=== PATIENT | female | born 1970 | race American Indian/Alaskan Native ===

== ENCOUNTER 2016-11-17 09:29 | Emergency (ER) | payer BC, MEDICARE ==
[2016-11-17 09:38] VITALS: RESP 18; TEMP 98.2; O2SAT 100; BMI 33.2
--- NOTE | 2016-11-17 09:45 | ED PDOC ---
Arrival/HPI - General Chief Complaint: Hip Pain Time Seen by Provider: 11/17/16 09:34 Historian: Patient - History of Present Illness Narrative History of Present Illness (Text): 11/17/16 09:44 46 y/o female, pmh including htn/hyperlipidemia/cva with lt. hemiparesis/ herniated disc on [id number] with neural foraminal narrowing, allergic to penicillin, c/o lower back pain x 5 days with no new injury or fall. Pt. stated that the lower back pain, occasionally radiating to the lt. lower thigh and occasionally rt. lower thigh, no urinary or bowel incontinence or retention , no flank pain, no abdominal pain, no fever or chills, no dizziness, no other medical or psychological complaints. 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 - Psychiatric Hx Psychophysiologic Disorder: No Hx Depression: No Hx Emotional Abuse: No Hx Physical Abuse: No Hx Substance Use: No - Past Surgical History Past Surgical History: No Previous - Surgical History Hx Appendectomy: Yes (1991) - Anesthesia Hx Anesthesia: Yes Hx Anesthesia Reactions: No Hx Malignant Hyperthermia: No - Suicidal Assessment Feels Threatened In Home Enviroment: No Family/Social History - Physician Review Nursing Documentation Reviewed: Yes Family/Social History: Unknown Family HX Smoking Status: Current Some Days Smoker Hx Alcohol Use: Yes (SOCIALLY WINE) Hx Substance Use: No Hx Substance Use Treatment: No Allergies/Home Meds Allergies/Adverse Reactions: Allergies Penicillins Allergy (Verified 11/17/16 09:40) ANAPHYLAXIS Home Medications: Home Meds Medication Instructions Recorded Confirmed Acetaminophen with Codeine 1 tab PO Q6 PRN 11/17/16 11/17/16 [Tylenol with Codeine No. 3 300 mg-30 mg] Cyclobenzaprine [Cyclobenzaprine 10 mg PO DAILY 11/17/16 11/17/16 HCl] Gabapentin [Neurontin] 600 mg PO TID 11/17/16 11/17/16 Tramadol HCl [Ultram] 50 mg PO TID PRN 11/17/16 11/17/16 Review of Systems - Review of Systems Constitutional: absent: Fatigue, Fevers Eyes: absent: Vision Changes ENT: absent: Hearing Changes Respiratory: absent: Cough, Sputum Cardiovascular: absent: Chest Pain Gastrointestinal: absent: Abdominal Pain, Nausea, Vomiting Genitourinary Female: absent: Dysuria, Frequency, Hematuria, Urine Output Changes, Vaginal Bleeding, Vaginal Discharge Musculoskeletal: Back Pain. absent: Arthralgias, Neck Pain, Joint Swelling, Myalgias Skin: absent: Rash, Pruritis, Skin Lesions, Laceration, Abscess, Ulcer, Cellulitis Neurological: absent: Headache, Dizziness, Focal Weakness, Gait Changes, Speech Changes, Facial Droop, Disequilibrium, Seizure Physical Exam Vital Signs Reviewed: Yes Vital Signs Temp Pulse Resp BP Pulse Ox 11/17/16 11:25 86 18 155/79 H 100 11/17/16 09:38 98.2 F 91 H 18 158/84 H 100 Temperature: Afebrile Blood Pressure: Hypertensive Pulse: Regular Respiratory Rate: Normal Appearance: Positive for: Well-Appearing, Non-Toxic, Uncomfortable Pain Distress: Severe Mental Status: Positive for: Alert and Oriented X 3 - Systems Exam Head: Present: Atraumatic, Normocephalic Pupils: Present: PERRL Extroacular Muscles: Present: EOMI Conjunctiva: Present: Normal Mouth: Present: Moist Mucous Membranes Neck: Present: Normal Range of Motion Respiratory/Chest: Present: Clear to Auscultation, Good Air Exchange. No: Respiratory Distress, Accessory Muscle Use Cardiovascular: Present: Regular Rate and Rhythm, Normal S1, S2. No: Murmurs Abdomen: Present: Normal Bowel Sounds. No: Tenderness, Distention, Peritoneal Signs, Rebound, Guarding Back: Present: Other (LS spine: no midline tenderness but there is bilateral paraspinal tenderness with spasm, SLR test unable to perform due to the pain, sensation intact, motor 5/5, no rash. ). No: CVA Tenderness, Midline Tenderness Upper Extremity: Present: Normal Inspection. No: Cyanosis, Edema Lower Extremity: Present: Normal Inspection. No: Edema Neurological: Present: GCS=15, CN II-XII Intact, Speech Normal Skin: Present: Warm, Dry, Normal Color. No: Rashes Psychiatric: Present: Alert, Oriented x 3, Normal Insight, Normal Concentration Medical Decision Making ED Course and Treatment: 11/17/16 10:06 -UA -CT lumbar spine -IVF/toradol/valium/decadron -Observe and reassess 11/17/16 11:38 -UA show mild leukocyte esterase, urine culture ordered, will treat with macrobid. -CT show no acute findings except there is disc bulging on L2L3 with fusion noted on the surgical site. -Pt. request more pain med, lidoderm topical and morphine 4mg IV ordered. - is here to pepper picker the patient and to take her home -Pt. feels better, no focal neurological deficits, walking with normal gait and posture. I advised the patient follow up with the spinal surgery who performed the L4L5 and see if surgical intervention is indicated which the patient stated that he will see her tomorrow. -Pt. request eRX prescriptions, I will do that as well. -Discharge home with macrobid, lidoderm patch, cane, flexeril, indomethacin, bed rest, follow up with your own pmd Dr. Bran this afternoon as you sheduled it, return to the ER for any new or worsening signs or symptoms. - Lab Interpretations Lab Results: Lab Results 11/17/16 10:00: Urine Color Yellow, Urine Appearance Cloudy, Urine pH 6.5, Ur Specific [place] 1.020, Urine Protein Negative, Urine Glucose (UA) Negative, Urine Ketones Negative, Urine Blood Trace-intact H, Urine Nitrate Negative, Urine Bilirubin Negative, Urine Urobilinogen 0.2, Ur Leukocyte Esterase Small H , Urine RBC 1 - 3, Urine WBC 2 - 5, Ur Epithelial Cells Many, Urine Bacteria Mod I have reviewed the lab results: Yes Interpretation: Abnormal lab values (+UTI) - RAD Interpretation Radiology Orders: 11/17/16 09:55 LUMBAR SPINE W/O CONTRAST [CT] Stat PROCEDURE: CT Lumbar Spine without contrast HISTORY: lower back pain, radiating COMPARISON: None. TECHNIQUE: Axial computed tomography images were obtained of the lumbar spine without the use of intravenous contrast. Coronal and sagittal reformatted images were created and reviewed. Radiation dose: Total exam DLP = mGy-cm. This CT exam was performed using one or more of the following dose reduction techniques: Automated exposure control, adjustment of the mA and/or kV according to patient size, and/or use of iterative reconstruction technique. FINDINGS: VERTEBRAE: Unremarkable. No fracture. Normal alignment. DISCS/SPINAL CANAL/NEURAL FORAMINA: L1-2: Unremarkable. L2-3: Disc degeneration and moderate disc bulge with mild bilateral foraminal stenosis. Mild facet arthropathy with ligamentum flavum hypertrophy L3-4: Unremarkable. L4-5: Interpedicular fusion. Disc degeneration with a vacuum disc. L5-S1: Unremarkable. PARASPINAL SOFT TISSUES: Unremarkable. OTHER FINDINGS: None. IMPRESSION: Disc degeneration and moderate disc bulge at L2-3. Interpedicular fusion at L4-5. No acute findings Helper Driver: Radiologist - Medication Orders Current Medication Orders: Sodium Chloride (Sodium Chloride 0.9%) 1,000 mls @ 500 mls/hr IV .Q2H AISSATOU Last Admin: 11/17/16 10:20 Dose: 500 MLS/HR eMAR Start Stop Document 11/17/16 10:20 SF (Rec: 11/17/16 10:20 [email or web address] Intravenous Solution Start Date 11/17/16 Start Time 10:20 End Date 11/17/16 Discontinued Medications Dexamethasone (Decadron Inj) 8 mg IVP STAT STA Stop: 11/17/16 09:56 Last Admin: 11/17/16 10:17 Dose: 8 MG IVP Administration Document 11/17/16 10:17 SF (Rec: 11/17/16 10:18 [email or web address]) Charges for Administration # of IVP Administrations 1 Diazepam (Valium) 7.5 mg IVP ONCE ONE PRN Reason: Protocol Stop: 11/17/16 09:56 Last Admin: 11/17/16 10:19 Dose: 7.5 MG IVP Administration Document 11/17/16 10:19 SF (Rec: 11/17/16 10:19 [email or web address]) Charges for Administration # of IVP Administrations 1 Ketorolac Tromethamine (Toradol) 30 mg IVP STAT STA Stop: 11/17/16 09:56 Last Admin: 11/17/16 10:18 Dose: 30 MG IVP Administration Document 11/17/16 10:18 SF (Rec: 11/17/16 10:19 SF [email or web address] Charges for Administration # of IVP Administrations 1 - PA / VICE PRESIDENT EDUCATION / Resident Statement MD/DO has reviewed & agrees with the documentation as recorded. Disposition/Present on Arrival - Present on Arrival Any Indicators Present on Arrival: No History of DVT/PE: No History of Uncontrolled Diabetes: No Urinary Catheter: No History of Decub. Ulcer: No History Surgical Site Infection Following: None - Disposition Have Diagnosis and Disposition been Completed?: Yes Diagnosis: Lumbar disc herniation, Back pain, Urinary tract infection Disposition: HOME/ ROUTINE Disposition Time: 10:07 Patient Plan: Discharge Patient Problems: Current Active Problems Problem Status Diagnosed Chest pain Acute Dyspnea Acute Lumbar disc herniation Acute Condition: IMPROVED Additional Instructions: Discharge home with macrobid, lidoderm patch, cane, flexeril, indomethacin, bed rest, follow up with your own pmd Dr. Bran this afternoon as you sheduled it, return to the ER for any new or worsening signs or symptoms. Prescriptions: Cyclobenzaprine [Cyclobenzaprine HCl] 10 mg PO TID PRN #21 tab PRN Reason: Other Indomethacin [Indocin] 50 mg PO TID PRN #21 cap PRN Reason: Other Lidocaine 5% [Lidoderm] 1 patch TOP DAILY PRN #7 patch PRN Reason: Other Nitrofurantoin Macrocrystals [Macrobid] 100 mg PO BID #14 cap Referrals: July Bran MD [Primary Care Provider] - Follow up with primary Star Mai MD [Staff Provider] - Follow up with primary Forms: WORK NOTE
[2016-11-17] MEDS ORDERED: diaZEpam 10 mg/2 ml Inj IVP ONE (09:55)
[2016-11-17 10:08] LABS: PH,URINE 6.5 (4.7-8.0); URINE BILIRUBIN NEGATIVE (NEGATIVE); URINE BLOOD TRACE-INTACT (NEGATIVE); URINE GLUCOSE (UA) NEGATIVE (NEGATIVE); URINE KETONE NEGATIVE (NEGATIVE); URINE LEUKOCYTE ESTERASE SMALL Leu/uL (NEGATIVE); URINE PROTEIN NEGATIVE mg/dL (<30 mg/dL); URINE UROBILINOGEN 0.2 E.U./dL (<1 E.U./dL)
[2016-11-17 10:20] LABS: URINE APPEARANCE CLOUDY (CLEAR); URINE COLOR YELLOW (YELLOW); URINE EPITHELIAL CELLS MANY /hpf (0-5)
[2016-11-17] MEDS: Sodium Chloride 0.9% 1,000 ML IV SCH ×2 (10:20→12:06)
[2016-11-17 10:21] LABS: URINE BACTERIA MOD (NEG)
--- NOTE | 2016-11-17 11:25 | CT ---
PROCEDURE: CT Lumbar Spine without contrast HISTORY: lower back pain, radiating COMPARISON: None. TECHNIQUE: Axial computed tomography images were obtained of the lumbar spine without the use of intravenous contrast. Coronal and sagittal reformatted images were created and reviewed. Radiation dose: Total exam DLP = mGy-cm. This CT exam was performed using one or more of the following dose reduction techniques: Automated exposure control, adjustment of the mA and/or kV according to patient size, and/or use of iterative reconstruction technique. FINDINGS: VERTEBRAE: Unremarkable. No fracture. Normal alignment. DISCS/SPINAL CANAL/NEURAL FORAMINA: L1-2: Unremarkable. L2-3: Disc degeneration and moderate disc bulge with mild bilateral foraminal stenosis. Mild facet arthropathy with ligamentum flavum hypertrophy L3-4: Unremarkable. L4-5: Interpedicular fusion. Disc degeneration with a vacuum disc. L5-S1: Unremarkable. PARASPINAL SOFT TISSUES: Unremarkable. OTHER FINDINGS: None. IMPRESSION: Disc degeneration and moderate disc bulge at L2-3. Interpedicular fusion at L4-5. No acute findings
[2016-11-17] MEDS ORDERED: Morphine 4 mg/ml ISec IVP STA (11:26)
[2016-11-17] MEDS ORDERED: Lidocaine 5% Patch TD STA (11:26)
[2016-11-17 12:13] VITALS: BP 153/74; PULSE 79
== END 2016-11-17 12:39 | disposition home or self-care (01) ==
LOC: ED 09:29
DX: M51.26 Other intervertebral disc displacement, lumbar region (principal); N39.0 Urinary tract infection, site not specified; M54.9 Dorsalgia, unspecified; I10 Essential (primary) hypertension; E78.5 Hyperlipidemia, unspecified; Z86.73 Personal history of transient ischemic attack (TIA), and cerebral infarction without residual deficits; Z72.0 Tobacco use
CPT/HCPCS: 72131; 81001; 87086; 96374; 96375; 99285; J1100; J1885; J2270; J3360; J7040

== ENCOUNTER 2017-05-28 11:00 | Emergency (ER) | payer BC, MEDICARE ==
[2017-05-28 11:06] VITALS: BMI 34.8
[2017-05-28 11:12] VITALS: RESP 18; TEMP 98.6; O2SAT 100
[2017-05-28] MEDS ORDERED: diaZEpam 10 mg/2 ml Inj IVP ONE (11:39)
--- NOTE | 2017-05-28 11:58 | ED PDOC ---
Arrival/HPI - General Chief Complaint: Hip Pain Time Seen by Provider: 05/28/17 11:14 Historian: Patient - History of Present Illness Narrative History of Present Illness (Text): 05/28/17 11:54 46yo female with history of hypertension/hyperlipedemia/CVA who present with complaint of severe right sided hip pain that radiates laterally to her knee. . She notes that hip pain is chronic, but became worse over the past two weeks. Pain is usually with movement and improves when laying down. States she took Naprosyn this morning without releive. She had a Negative Hip MRI in February. Notes surgical history of Laminectomy secondary to LS bulging disc. She denies any recent trauma, fecal/urinary incontinence/retention, abdominal pain, urianry symptoms, focal weakness, any other complaint. Past Medical History - Provider Review Nursing Documentation Reviewed: Yes - Infectious Disease Hx of Infectious Diseases: None - Tetanus Immunization Tetanus Immunization: Unknown - Cardiac Hx Cardiac Disorders: Yes - Pulmonary Hx Respiratory Disorders: Yes (SMOKES CIGARETTES) - Neurological HX Cerebrovascular Accident: Yes (x2; L sided weakness) Hx Transient Ischemic Attacks (TIA): No - HEENT Hx HEENT Disorder: No - Renal Hx Renal Disorder: No - Hematological/Oncological Hx Blood Disorders: Yes - Integumentary Hx Dermatological Disorder: Yes (TATTOOS) - Musculoskeletal/Rheumatological Hx Musculoskeletal Disorders: Yes (LAMINECTOMY L4L5,LUMBAR RADICULOPATHY) Hx Back Pain: Yes Other/Comment: TITANIUM TANO TO LOWER BACK.LAMINECTOMY, - Gastrointestinal Hx Gastrointestinal Disorders: No - Genitourinary/Gynecological Hx Genitourinary Disorders: Yes - Psychiatric Hx Psychophysiologic Disorder: No Hx Substance Use: Yes - Past Surgical History Past Surgical History: No Previous - Surgical History Hx Appendectomy: Yes (1991) Hx Hysterectomy: Yes Other/Comment: BACK SURGERY WITH TITANIUM TANO,CESEREAN SECTION X 1 - Anesthesia Hx Anesthesia: Yes Hx Anesthesia Reactions: No Hx Malignant Hyperthermia: No - Suicidal Assessment Feels Threatened In Home Enviroment: No Family/Social History - Physician Review Nursing Documentation Reviewed: Yes Family/Social History: Unknown Family HX Smoking Status: Heavy Smoker > 10 Cigarettes Daily Hx Alcohol Use: Yes Frequency of alcohol use: Socially Hx Substance Use: Yes Substance used: [place]ana Hx Substance Use Treatment: No Allergies/Home Meds Allergies/Adverse Reactions: Allergies Penicillins Allergy (Verified 01/06/17 06:47) ANAPHYLAXIS Home Medications: Home Meds Medication Instructions Recorded Confirmed amLODIPine [Norvasc] 10 mg PO DAILY 01/06/17 05/28/17 Biotin [Emmett Biotin] 1 tab PO DAILY 05/28/17 05/28/17 Cholecalciferol [Vitamin D 1000 IU] 1 tab PO DAILY 05/28/17 05/28/17 Vitamin B Complex [B Complex] 1 tab PO DAILY 05/28/17 05/28/17 Review of Systems - Physician Review All systems were reviewed & negative as marked: Yes - Review of Systems Constitutional: Normal Eyes: Normal ENT: Normal Respiratory: Normal Cardiovascular: Normal Gastrointestinal: Normal Genitourinary Female: Normal Musculoskeletal: Arthralgias (Right hip pain) Skin: Normal Neurological: Normal Endocrine: Normal Hemo/Lymphatic: Normal Psychiatric: Normal Physical Exam Vital Signs Reviewed: Yes Vital Signs Temp Pulse Resp BP Pulse Ox 05/28/17 13:41 86 18 127/75 100 05/28/17 11:10 98.6 F 92 H 18 129/81 100 Temperature: Afebrile Blood Pressure: Normal Pulse: Regular Respiratory Rate: Normal Appearance: Positive for: Well-Appearing, Non-Toxic, Comfortable Pain Distress: None Mental Status: Positive for: Alert and Oriented X 3 - Systems Exam Head: Present: Atraumatic, Normocephalic Pupils: Present: PERRL Extroacular Muscles: Present: EOMI Conjunctiva: Present: Normal Mouth: Present: Moist Mucous Membranes Neck: Present: Normal Range of Motion Respiratory/Chest: Present: Clear to Auscultation, Good Air Exchange. No: Respiratory Distress, Accessory Muscle Use Cardiovascular: Present: Regular Rate and Rhythm, Normal S1, S2. No: Murmurs Abdomen: Present: Normal Bowel Sounds. No: Tenderness, Distention, Peritoneal Signs Back: Present: Normal Inspection, Pain with Leg Raise (Right leg). No: Midline Tenderness, Paraspinal Tenderness Upper Extremity: Present: Normal Inspection. No: Cyanosis, Edema Lower Extremity: Present: NORMAL PULSES, Tenderness (Lateral right hip), Neurovascularly Intact. No: Edema, CALF TENDERNESS, Normal ROM (Limited on right leg/hip secondary to pain on all planes), Swelling, Deformity Neurological: Present: GCS=15, CN II-XII Intact, Speech Normal Skin: Present: Warm, Dry, Normal Color. No: Rashes Psychiatric: Present: Alert, Oriented x 3, Normal Insight, Normal Concentration Medical Decision Making ED Course and Treatment: 05/28/17 13:58 46yo female in ED for right hip pain. Pt have chronic back and hip pain. Her MRI result was reviewed from February and it was negative. Pt admits to be on Percocet and Naprosyn at home. Her PATIENT CASE COORDINATOR was reviewed and Oxycodone prescription was noted. She was treated with Decadron, Toradol and Valium in ED. On re evaluation she states pain is unchanged. She was given Morphine. On r evaluation she notes pain improved. she was ambulatory. she will be DC home to f/u with a pain management. - Medication Orders Current Medication Orders: Discontinued Medications Dexamethasone (Decadron Inj) 10 mg IVP STAT STA Stop: 05/28/17 11:40 Last Admin: 05/28/17 12:10 Dose: 10 mg IVP Administration Document 05/28/17 12:10 HI (Rec: 05/28/17 12:10 [id number] Charges for Administration # of IVP Administrations 1 Diazepam (Valium) 5 mg IVP ONCE ONE PRN Reason: Protocol Stop: 05/28/17 11:40 Last Admin: 05/28/17 12:10 Dose: 5 mg IVP Administration Document 05/28/17 12:10 HI (Rec: 05/28/17 12:11 [id number] Charges for Administration # of IVP Administrations 1 Ketorolac Tromethamine (Toradol) 30 mg IVP STAT STA Stop: 05/28/17 11:39 Last Admin: 05/28/17 12:10 Dose: 30 mg [facility] Pain Assessment Document 05/28/17 12:10 HI (Rec: 05/28/17 12:10 [id number] Pain Reassessment Is this a pain reassessment? No Sleep Is patient sleeping during reassessment? No Presence of Pain Presence of Pain Yes Pain Scale Used Pain Scale Used Numeric Location Left, Right or Bilateral Right Pain Location Body Site Hip Description Intensity of Pain at present 10 IVP Administration Document 05/28/17 12:10 HI (Rec: 05/28/17 12:10 [id number] Charges for Administration # of IVP Administrations 1 Re-Assess: MAR Pain Assessment Document 05/28/17 13:10 HI (Rec: 05/28/17 13:39 [id number] Pain Reassessment Is this a pain reassessment? Yes Sleep Is patient sleeping during reassessment? No Presence of Pain Presence of Pain Yes Pain Scale Used Pain Scale Used Numeric Location Left, Right or Bilateral Right Pain Location Body Site Hip Morphine Sulfate (Morphine) 4 mg IVP STAT STA Stop: 05/28/17 13:23 Last Admin: 05/28/17 13:36 Dose: 4 mg MAR Pain Assessment Document 05/28/17 13:36 HI (Rec: 05/28/17 13:39 [id number] Pain Reassessment Is this a pain reassessment? Yes Sleep Is patient sleeping during reassessment? No Presence of Pain Presence of Pain Yes Pain Scale Used Pain Scale Used Numeric Location Left, Right or Bilateral Right Pain Location Body Site Hip Description Intensity of Pain at present 8 IVP Administration Document 05/28/17 13:36 HI (Rec: 05/28/17 13:39 [id number] Charges for Administration # of IVP Administrations 1 Disposition/Present on Arrival - Present on Arrival Any Indicators Present on Arrival: No History of DVT/PE: No History of Uncontrolled Diabetes: No Urinary Catheter: No History of Decub. Ulcer: No History Surgical Site Infection Following: None - Disposition Have Diagnosis and Disposition been Completed?: Yes Diagnosis: Hip pain, Lumbar radiculopathy Disposition: HOME/ ROUTINE Disposition Time: 14:05 Patient Plan: Discharge Condition: STABLE Discharge Instructions (ExitCare): Hip Pain (ED) Additional Instructions: Follow up with your Doctor/Pain management Return to ED for any new or worsening symptoms Referrals: July Bran MD [Family Provider] - Follow up with primary Forms: [employer] (Wallisian)
[2017-05-28] MEDS ORDERED: Morphine 4 mg/ml ISec IVP STA (13:22)
[2017-05-28 13:42] VITALS: BP 127/75; PULSE 86
== END 2017-05-28 14:40 | disposition home or self-care (01) ==
LOC: ED 11:00
DX: M25.551 Pain in right hip (principal); M54.16 Radiculopathy, lumbar region
CPT/HCPCS: 96374; 96375; 99284; J1100; J1885; J2270; J3360

== ENCOUNTER 2017-10-16 10:42 | Emergency (ER) | payer BC, MEDICARE ==
[2017-10-16 10:43] VITALS: BMI 34.0
[2017-10-16 10:56] VITALS: BP 145/83; PULSE 84; RESP 18; TEMP 98.7; O2SAT 97
--- NOTE | 2017-10-16 11:18 | ED PDOC ---
Arrival/HPI - General Chief Complaint: Back Pain Time Seen by Provider: 10/16/17 10:56 Historian: Patient - History of Present Illness Narrative History of Present Illness (Text): 10/16/17 11:13 47yo female with PMhx of hypercholestremia, hypertension, back pain and kidney cyst who present with complaint of throbbing/sharp left sided mid back pain x 2days. She thinks pain is related to her kidney cyst. States pain is worse with moment and deep inspiration. States she did not take any medication for the pain. Denies abdominal pain, fever, chills, nausea, vomiting, hematuria, urinary symptoms, focal weakness, saddle anesthesia, any other complaint. Past Medical History - Provider Review Nursing Documentation Reviewed: Yes - Infectious Disease Hx of Infectious Diseases: None - Tetanus Immunization Tetanus Immunization: Unknown - Cardiac Hx Cardiac Arrhythmia: No Hx Congestive Heart Failure: No Hx Hypertension: Yes - Pulmonary Hx Chronic Obstructive Pulmonary Disease (COPD): No - Neurological Hx Migraine: No Hx Seizures: No Hx Transient Ischemic Attacks (TIA): Yes (x2) Other/Comment: Left side weakness - HEENT Hx HEENT Disorder: No - Renal Hx Renal Disorder: No - Endocrine/Metabolic Hx Hyperthyroidism: No Hx Hypothyroidism: No - Hematological/Oncological Hx Anemia: Yes - Integumentary Hx Dermatological Disorder: Yes (TATTOOS) - Musculoskeletal/Rheumatological Hx Arthritis: Yes Hx Falls: No Hx Osteoporosis: Yes Hx Rheumatoid Arthritis: No - Gastrointestinal Hx Gastrointestinal Disorders: No - Genitourinary/Gynecological Hx Genitourinary Disorders: Yes - Psychiatric Hx Depression: No Hx Substance Use: Yes (marijuana user) - Past Surgical History Past Surgical History: No Previous - Surgical History Hx Appendectomy: Yes (1991) Hx Hysterectomy: Yes - Anesthesia Hx Anesthesia: Yes Hx Anesthesia Reactions: No Hx Malignant Hyperthermia: No - Suicidal Assessment Feels Threatened In Home Enviroment: No Family/Social History - Physician Review Nursing Documentation Reviewed: Yes Family/Social History: Unknown Family HX Smoking Status: Light Smoker < 10 Cigarettes Daily Hx Alcohol Use: No Hx Substance Use: Yes (marijuana user) Substance used: Marujuana Hx Substance Use Treatment: No Allergies/Home Meds Allergies/Adverse Reactions: Allergies Penicillins Allergy (Verified 10/16/17 10:56) ANAPHYLAXIS Home Medications: Home Meds Medication Instructions Recorded Confirmed amLODIPine [Norvasc] 10 mg PO DAILY 01/06/17 10/16/17 Biotin [Emmett Biotin] 1 tab PO DAILY 05/28/17 10/16/17 Cholecalciferol [Vitamin D 1000 IU] 1 tab PO DAILY 05/28/17 10/16/17 Vitamin B Complex [B Complex] 1 tab PO DAILY 05/28/17 10/16/17 Review of Systems - Physician Review All systems were reviewed & negative as marked: Yes - Review of Systems Constitutional: Normal Eyes: Normal ENT: Normal Respiratory: Normal Cardiovascular: Normal Gastrointestinal: Normal Genitourinary Female: Normal Musculoskeletal: Back Pain Skin: Normal Neurological: Normal Endocrine: Normal Hemo/Lymphatic: Normal Psychiatric: Normal Physical Exam Vital Signs Reviewed: Yes Vital Signs Temp Pulse Resp BP Pulse Ox 10/16/17 10:52 98.7 F 84 18 145/83 97 Temperature: Afebrile Blood Pressure: Normal Pulse: Regular Respiratory Rate: Normal Appearance: Positive for: Well-Appearing, Non-Toxic, Comfortable Pain Distress: None Mental Status: Positive for: Alert and Oriented X 3 - Systems Exam Head: Present: Atraumatic, Normocephalic Pupils: Present: PERRL Extroacular Muscles: Present: EOMI Conjunctiva: Present: Normal Mouth: Present: Moist Mucous Membranes Neck: Present: Normal Range of Motion Respiratory/Chest: Present: Clear to Auscultation, Good Air Exchange. No: Respiratory Distress, Accessory Muscle Use Cardiovascular: Present: Regular Rate and Rhythm, Normal S1, S2. No: Murmurs Abdomen: Present: Normal Bowel Sounds. No: Tenderness, Distention, Peritoneal Signs Back: Present: Paraspinal Tenderness (Left paraspinous tenderness). No: Midline Tenderness, Pain with Leg Raise Upper Extremity: Present: Normal Inspection. No: Cyanosis, Edema Lower Extremity: Present: Normal Inspection. No: Edema Neurological: Present: GCS=15, CN II-XII Intact, Speech Normal Skin: Present: Warm, Dry, Normal Color. No: Rashes Psychiatric: Present: Alert, Oriented x 3, Normal Insight, Normal Concentration Medical Decision Making ED Course and Treatment: 10/16/17 19:21 PT in ED for stated history. She was ambulatory in ED. She had no focal neurological deficit. Her pain was controlled in ED. Pt's pain was reproducible , more like MS in nature than kidney related. Lab was nonspecific. LS CT IMPRESSION: Expected postoperative findings, revision with unremarkable hardware extending from L2 through L5. No acute osseous abnormalities detected. No evidence of hardware failure. No pre or paravertebral abnormalities identified. Abdominal CT IMPRESSION: Bilateral small nonobstructing renal calculi. Cystic pelvic mass which requires further evaluation, this finding was not apparent on prior pelvic ultrasound 12/07/2016. Additional benign and/or incidental findings described above. Findings on abdominal CT was DW the pt. she have a [employer] and was strongly advised to f/u with her [employer] C[employer]URIST for f/u on the cystic pelvic mass. Rx of Naprosyn and and flexeril was given. - Lab Interpretations Lab Results: 10/16/17 11:29 10/16/17 11:29 Lab Results 10/16/17 11:29: Sodium 141, Potassium 4.0, Chloride 105, Carbon Dioxide 28, Anion Gap 8 L, BUN 9, Creatinine 0.7, Est GFR ( Amer) > 60, Est GFR (Non- Af Amer) > 60, Random Glucose 94, Calcium 10.5, Total Bilirubin 0.5, AST 22, ALT 22, Alkaline Phosphatase 51, Total Protein 8.0, Albumin 4.5, Globulin 3.4, Albumin/Globulin Ratio 1.3 10/16/17 11:29: Urine Color Yellow, Urine Appearance Clear, Urine pH 7.5, Ur Specific [place] 1.015, Urine Protein Negative, Urine Glucose (UA) Negative, Urine Ketones Negative, Urine Blood Negative, Urine Nitrate Negative, Urine Bilirubin Negative, Urine Urobilinogen 0.2, Ur Leukocyte Esterase Negative 10/16/17 11:29: PT 11.0, INR 0.96, APTT 29.8 10/16/17 11:29: WBC 8.6 D, RBC 4.68, Hgb 13.8, Hct 42.0, MCV 89.7, MCH 29.5, MCHC 32.9, RDW 13.2, Plt Count 173, MPV 11.4 H, Gran % 61.1, Lymph % (Auto) 33.6 , Slope % (Auto) 3.7, Eos % (Auto) 1.4 L, Baso % (Auto) 0.2, Gran # 5.26, Lymph # (Auto) 2.9, Slope # (Auto) 0.3, Eos # (Auto) 0.1, Baso # (Auto) 0.02 - RAD Interpretation Radiology Orders: 10/16/17 11:09 ABD & PELVIS W/O PO OR IV CONT [CT] Stat 10/16/17 12:06 LUMBAR SPINE W/O CONTRAST [CT] Stat - Medication Orders Current Medication Orders: Discontinued Medications Cyclobenzaprine HCl (Flexeril) 10 mg PO STAT STA Stop: 10/16/17 11:20 Last Admin: 10/16/17 11:26 Dose: 10 mg Sodium Chloride (Sodium Chloride 0.9%) 1,000 mls @ 999 mls/hr IV .Q1H1M STA Stop: 10/16/17 12:19 Last Admin: 10/16/17 11:25 Dose: 999 mls/hr eMAR Start Stop Document 10/16/17 11:25 TA (Rec: 10/16/17 11:25 TA [id number]) Intravenous Solution Start Date 10/16/17 Start Time 11:25 Ketorolac Tromethamine (Toradol) 30 mg IVP STAT STA Stop: 10/16/17 11:20 Last Admin: 10/16/17 11:25 Dose: 30 mg MAR Pain Assessment Document 10/16/17 11:25 TA (Rec: 10/16/17 11:26 TA [id number]) Pain Reassessment Is this a pain reassessment? No Sleep Is patient sleeping during reassessment? No Presence of Pain Presence of Pain Yes Pain Scale Used Pain Scale Used Numeric Location Left, Right or Bilateral Left Pain Location Body Site Generalized Description Description Throbbing Intensity of Pain at present 6 Acceptable Level of Pain 0 Alleviating Factors/Management Medication Techniques IVP Administration Document 10/16/17 11:25 TA (Rec: 10/16/17 11:26 TA [id number]) Charges for Administration # of IVP Administrations 1 Disposition/Present on Arrival - Present on Arrival Any Indicators Present on Arrival: No History of DVT/PE: No History of Uncontrolled Diabetes: No Urinary Catheter: No History of Decub. Ulcer: No History Surgical Site Infection Following: None - Disposition Have Diagnosis and Disposition been Completed?: Yes Diagnosis: Back pain, Kidney stone Disposition: HOME/ ROUTINE Disposition Time: 13:35 Patient Plan: Discharge Condition: STABLE Discharge Instructions (ExitCare): Kidney Stones in Adults, Low Back Pain (DC) Additional Instructions: Follow up with your doctor Return to ED for any new symptoms Prescriptions: traMADol [Ultram] 50 mg PO TID #10 tab Referrals: July Bran MD [Primary Care Provider] - Follow up with primary Forms: [employer] (German)
[2017-10-16] MEDS ORDERED: Sodium Chloride 0.9% 1,000 ML IV STA (11:19)
[2017-10-16 11:36] LABS: BASO # 0.02 K/mm3 (0.0-2.0); BASO % 0.2 % (0.0-3.0); EOS # 0.1 (0.0-0.7); EOS % 1.4 % (1.5-5.0); GRAN # 5.26 (1.4-6.5); GRAN % 61.1 % (50.0-68.0); HEMOGLOBIN 13.8 g/dL (12.0-16.0); LYMPH # 2.9 (1.2-3.4); LYMPH % 33.6 % (22.0-35.0); MEAN CELL VOLUME 89.7 fl (80.0-105.0); MEAN CORPUSCULAR HEMOGLOBIN 29.5 pg (25.0-35.0); MEAN CORPUSCULAR HGB CONC 32.9 g/dl (31.0-37.0); MEAN PLATELET VOLUME 11.4 fl (7.0-11.0); MONO # 0.3 (0.1-0.6); MONO % 3.7 % (1.0-6.0); PH,URINE 7.5 (4.7-8.0); RBC 4.68 10^6/uL (3.5-6.1); RED CELL DISTRIBUTION WIDTH 13.2 % (11.5-14.5); URINE BILIRUBIN NEGATIVE (NEGATIVE); URINE BLOOD NEGATIVE (NEGATIVE); URINE GLUCOSE (UA) NEGATIVE (NEGATIVE); URINE LEUKOCYTE ESTERASE NEGATIVE Leu/uL (NEGATIVE); URINE PROTEIN NEGATIVE mg/dL (<30 mg/dL); URINE UROBILINOGEN 0.2 E.U./dL (<1 E.U./dL); WHITE BLOOD COUNT 8.6 10^3/ul (4.5-11.0)
[2017-10-16 11:37] LABS: URINE APPEARANCE CLEAR (CLEAR); URINE COLOR YELLOW (YELLOW)
[2017-10-16 11:54] LABS: ALB/GLOB RATIO 1.3 (1.1-1.8); ALBUMIN 4.5 g/dL (3.0-4.8); ALT/SGPT 22 U/L (7-56); AST/SGOT 22 U/L (14-36); BLOOD UREA NITROGEN 9 mg/dL (7-21); CALCIUM 10.5 mg/dL (8.4-10.5); GFR AFRICAN-AMERICAN > 60; GFR NON-AFRICAN AMERICAN > 60; INR 0.96 (0.93-1.08); PARTIAL THROMBOPLASTIN TIME 29.8 Seconds (25.1-36.5)
--- NOTE | 2017-10-16 12:41 | CT ---
PROCEDURE: CT Abdomen and Pelvis without intravenous contrast HISTORY: left back pain COMPARISON: 12/07/2016 pelvic ultrasound TECHNIQUE: Unenhanced study. Neither oral nor intravenous contrast administered. Radiation dose: Total exam DLP = 849.75 mGy-cm. This CT exam was performed using one or more of the following dose reduction techniques: Automated exposure control, adjustment of the mA and/or kV according to patient size, and/or use of iterative reconstruction technique. FINDINGS: LOWER THORAX: Unremarkable. LIVER: Unremarkable. No gross lesion or ductal dilatation. GALLBLADDER AND BILE DUCTS: Unremarkable. PANCREAS: Unremarkable. No gross lesion or ductal dilatation. SPLEEN: Unremarkable. ADRENALS: Unremarkable. No mass. KIDNEYS AND URETERS: Bilateral nonobstructing renal calculi none larger than 5 mm. No evidence of hydronephrosis or hydroureter. VASCULATURE: Unremarkable. No aortic aneurysm. BOWEL: Unremarkable. No obstruction. No gross mural thickening. APPENDIX: Unremarkable. Normal appendix. PERITONEUM: Unremarkable. No free fluid. No free air. LYMPH NODES: Unremarkable. No enlarged lymph nodes. BLADDER: Bladder wall thickening which may relate to underfilling but also be seen with cystitis. REPRODUCTIVE: By history, Prior hysterectomy. There does appear to be either a prominent cervix or uterine remnant. Cystic pelvic mass likely originating from the right adnexa 5.6 x 6.6 cm. Ultrasound recommended for further evaluation. BONES: No acute fracture. OTHER FINDINGS: Orthopedic hardware related to prior laminectomy and fusion lower lumbar spine. No evidence of orthopedic hardware failure. IMPRESSION: Bilateral small nonobstructing renal calculi. Cystic pelvic mass which requires further evaluation, this finding was not apparent on prior pelvic ultrasound 12/07/2016. Additional benign and/or incidental findings described above.
--- NOTE | 2017-10-16 13:02 | CT ---
PROCEDURE: CT Lumbar Spine without contrast HISTORY: back pain Relevant surgical history: Additional lumbar surgery compared to the prior study 11/17/2016 interpedicular hardware related to fusion COMPARISON: 11/17/2016 CT lumbar spine TECHNIQUE: Axial computed tomography images were obtained of the lumbar spine without the use of intravenous contrast. Coronal and sagittal reformatted images were created and reviewed. Radiation dose: Total exam DLP = ray caps mGy-cm. This CT exam was performed using one or more of the following dose reduction techniques: Automated exposure control, adjustment of the mA and/or kV according to patient size, and/or use of iterative reconstruction technique. FINDINGS: VERTEBRAE: New orthopedic hardware related to interpedicular fusion L2-L5. No evidence of orthopedic hardware failure. DISCS/SPINAL CANAL/NEURAL FORAMINA: L1-2: Unremarkable. L2-3: Postoperative changes related to laminectomy/postoperative fusion L3-4: Postoperative findings related to laminectomy/interpedicular fusion L4-5: Postoperative changes related to laminectomy/ interpedicular fusion vacuum disc phenomenon noted. L5-S1: Unremarkable. PARASPINAL SOFT TISSUES: Unremarkable. OTHER FINDINGS: Bilateral nonobstructing calculus disease. IMPRESSION: Expected postoperative findings, revision with unremarkable hardware extending from L2 through L5. No acute osseous abnormalities detected. No evidence of hardware failure. No pre or paravertebral abnormalities identified.
== END 2017-10-16 16:00 | disposition home or self-care (01) ==
LOC: ED 10:42
DX: N20.0 Calculus of kidney (principal); M54.5 Low back pain; I10 Essential (primary) hypertension; E78.00 Pure hypercholesterolemia, unspecified; Z86.73 Personal history of transient ischemic attack (TIA), and cerebral infarction without residual deficits; F17.210 Nicotine dependence, cigarettes, uncomplicated
CPT/HCPCS: 72131; 74176; 80053; 81003; 85025; 85610; 85730; 96374; 99283; J1885; J7040

== ENCOUNTER 2018-11-17 19:41 | Emergency (ER) | payer BC, MEDICARE ==
[2018-11-17 19:42] VITALS: BMI 34.0
[2018-11-17 20:09] VITALS: TEMP 97.7
--- NOTE | 2018-11-17 21:59 | ED PDOC ---
Arrival/HPI - General Chief Complaint: Finger,Hand,&Wrist Time Seen by Provider: 11/17/18 20:10 Historian: Patient - History of Present Illness Narrative History of Present Illness (Text): 11/17/18 22:26 48yr old female presents today with a 2 week history of continued pain to the right hand. pt states hand is stiff throughout the day but worse in the morning. pt denies trauma or injury. no medications have been taken for pain. pt states that her sister and her aunt have rheumatoid arthritis. Patient states she feels as if her her fingers are stiff and in order to straighten them at times she needs to physically extend them herself. Past Medical History - Provider Review Nursing Documentation Reviewed: Yes - Travel History Have you recently traveled outside [place] w/in the past 3 mons?: No - Infectious Disease Hx of Infectious Diseases: None - Tetanus Immunization Tetanus Immunization: Unknown - Cardiac Hx Cardiac Disorders: Yes Hx Cardiac Arrhythmia: No Hx Congestive Heart Failure: No Hx Hypertension: Yes - Pulmonary Hx Chronic Obstructive Pulmonary Disease (COPD): No - Neurological Hx Neurological Disorder: Yes Hx Migraine: No Hx Seizures: No Hx Transient Ischemic Attacks (TIA): Yes (x2) Other/Comment: Left side weakness - HEENT Hx HEENT Disorder: No - Renal Hx Renal Disorder: No - Endocrine/Metabolic Hx Hyperthyroidism: No Hx Hypothyroidism: No - Hematological/Oncological Hx Anemia: Yes - Integumentary Hx Dermatological Disorder: Yes (TATTOOS) - Musculoskeletal/Rheumatological Hx Arthritis: Yes Hx Falls: No Hx Osteoporosis: Yes Hx Rheumatoid Arthritis: No - Gastrointestinal Hx Gastrointestinal Disorders: No - Genitourinary/Gynecological Hx Genitourinary Disorders: Yes - Psychiatric Hx Depression: No Hx Substance Use: Yes (marijuana user) - Past Surgical History Past Surgical History: No Previous - Surgical History Hx Appendectomy: Yes (1991) Hx Section: Yes Hx Hysterectomy: Yes - Anesthesia Hx Anesthesia: Yes Hx Anesthesia Reactions: No Hx Malignant Hyperthermia: No - Suicidal Assessment Feels Threatened In Home Enviroment: No Family/Social History - Physician Review Nursing Documentation Reviewed: Yes Family/Social History: Unknown Family HX Smoking Status: Heavy Smoker > 10 Cigarettes Daily Hx Alcohol Use: No Hx Substance Use: Yes (marijuana user) Substance used: Marujuana Hx Substance Use Treatment: No Allergies/Home Meds Allergies/Adverse Reactions: Allergies Penicillins Allergy (Verified 10/16/17 10:56) ANAPHYLAXIS Home Medications: Home Meds Medication Instructions Recorded Confirmed amLODIPine [Norvasc] 10 mg PO DAILY 01/06/17 11/17/18 Biotin [Emmett Biotin] 1 tab PO DAILY 05/28/17 11/17/18 Review of Systems - Review of Systems Constitutional: absent: Fatigue, Fevers Respiratory: absent: SOB, Cough Cardiovascular: absent: Chest Pain, Palpitations Gastrointestinal: absent: Abdominal Pain, Nausea, Vomiting Musculoskeletal: Arthralgias. absent: Back Pain, Neck Pain Skin: absent: Rash, Pruritis Neurological: absent: Headache, Dizziness Psychiatric: absent: Anxiety, Depression Physical Exam Vital Signs Reviewed: Yes Vital Signs Temp Pulse Resp BP Pulse Ox 11/17/18 20:06 97.7 F 71 18 141/84 100 Temperature: Afebrile Blood Pressure: Normal Pulse: Regular Respiratory Rate: Normal Appearance: Positive for: Well-Appearing, Non-Toxic, Comfortable Pain Distress: None Mental Status: Positive for: Alert and Oriented X 3 - Systems Exam Head: Present: Atraumatic Mouth: Present: Moist Mucous Membranes Neck: Present: Normal Range of Motion Respiratory/Chest: Present: Clear to Auscultation, Good Air Exchange. No: Respiratory Distress, Accessory Muscle Use Cardiovascular: Present: Regular Rate and Rhythm, Normal S1, S2. No: Murmurs Upper Extremity: Present: Normal ROM (stiff full rom of fingers.), NORMAL PULSES, Tenderness (right hand; + ttp over all fingers and palm. ), Neurovascularly Intact, Capillary Refill < 2s. No: Swelling, Erythema, Temperature Abnormalties Neurological: Present: GCS=15, Motor Func Grossly Intact, Normal Sensory Function Skin: Present: Warm, Dry, Normal Color. No: Rashes Psychiatric: Present: Alert, Oriented x 3 Medical Decision Making ED Course and Treatment: 11/17/18 21:57 Patient nontoxic well-appearing in no distress with stable vital signs X-rays of the right hand; no fracture toradol IM Patient feeling better after medications. Patient given velcro wrist splint I discussed all results with patient advised to followup with the orthopedist/hand specialist for the next 2 days. Return if symptoms worsen persist or new symptoms develop. pt was advised to f/u with PMD. advised patient of need for f/u with brush machine setter as patient has a family history for rheumatoid arthritis. Patient verbalizes understanding of discharge instructions and need for immediate followup. All aspects of this case were discussed the attending of record. Impression: hand pain Motrin every 6 hours as needed for pain Follow-up with a hand specialist/orthopedist within the next 2 days Follow-up with a primary care physician within the next 2 days Use wrist splint Return if symptoms worsen persist or if new concerning symptoms develop Reassessment Condition: Re-examined, Improved - RAD Interpretation Radiology Orders: 11/17/18 20:48 HAND RIGHT 3 VIEWS [RAD] Stat - Medication Orders Current Medication Orders: Discontinued Medications Ketorolac Tromethamine (Toradol) 60 mg IM STAT STA Stop: 11/17/18 20:49 Last Admin: 11/17/18 21:04 Dose: 60 mg MAR Pain Assessment Document 11/17/18 21:04 GMD (Rec: 11/17/18 21:05 GMD [id number]) Pain Reassessment Is this a pain reassessment? No IM Administration Charges Document 11/17/18 21:04 GMD (Rec: 11/17/18 21:05 GMD [id number]) Injection Site MAR Injection Site Right Gluteus Darryl Charges for Administration # of IM Administrations 1 Disposition/Present on Arrival - Present on Arrival Any Indicators Present on Arrival: No History of DVT/PE: No History of Uncontrolled Diabetes: No Urinary Catheter: No History of Decub. Ulcer: No History Surgical Site Infection Following: None - Disposition Have Diagnosis and Disposition been Completed?: Yes Diagnosis: Hand pain Disposition: HOME/ ROUTINE Disposition Time: 21:20 Patient Plan: Discharge Condition: GOOD Discharge Instructions (ExitCare): Hand Pain (DC) Additional Instructions: Motrin every 6 hours as needed for pain Follow-up with a hand specialist/orthopedist within the next 2 days Follow-up with a primary care physician within the next 2 days Use wrist splint Return if symptoms worsen persist or if new concerning symptoms develop Prescriptions: Ibuprofen [Motrin] 600 mg PO Q6H PRN #20 tab PRN Reason: pain/fever reduction Referrals: July Bran MD [Primary Care Provider] - Follow up with primary Ryne Davis MD [Staff Provider] - Follow up with primary Dayana Lainez MD [Staff Provider] - Follow up with primary Forms: [employer] (Italian)
[2018-11-17 22:07] VITALS: BP 138/69; PULSE 72; RESP 16; O2SAT 99
--- NOTE | 2018-11-18 08:43 | RAD ---
PROCEDURE: Right Hand Radiographs. HISTORY: right hand pain x 2 weeks COMPARISON: None available. FINDINGS: BONES: No acute displaced fracture. JOINTS: No dislocation. SOFT TISSUES: Unremarkable. No evidence of radiopaque foreign body. OTHER FINDINGS: None. IMPRESSION: No acute displaced fracture, dislocation, or significant joint effusion identified. If symptoms persist, or if there is continued clinical concern, x-ray follow-up in 7-10 days should be considered.
== END 2018-11-17 22:06 | disposition home or self-care (01) ==
LOC: ED 19:41
DX: M79.641 Pain in right hand (principal); I10 Essential (primary) hypertension; F17.210 Nicotine dependence, cigarettes, uncomplicated
CPT/HCPCS: 73130; 96372; 99284; J1885